=== PATIENT | female | born 1950 | race Two or more races ===

== ENCOUNTER 2019-07-28 10:49 | Inpatient (IN) | payer OTHER ==
[~2019-07-28] VITALS: Ht 167.6 cm; Wt 66.2 kg
[~2019-07-28 10:49] MED LIST: ATENOLOL25 MG; PROPRANOLOL HCL40 MG
[2019-07-28] MEDS ORDERED: LANOXIN125 MCG (11:04)
[2019-07-28] MEDS ORDERED: METOPROLOL SUCC50 MG (11:04)
[2019-07-28] MEDS ORDERED: XARELTO20 MG (11:04)
== END 2019-07-30 16:03 | disposition home or self-care (01) | DRG 309 ==
LOC: ER 10:49 → EDBD 07-29 15:33 → SURG 07-29 15:33
PROVIDERS: ADMIT Specialist
PROC: B246ZZZ Ultrasonography of Right and Left Heart (ICD-10-PCS; principal; 2019-07-29)
PROC: 4A12X4Z Monitoring of Cardiac Electrical Activity, External Approach (ICD-10-PCS; 2019-07-29)
DX: I48.0 Paroxysmal atrial fibrillation (principal); D68.61 Antiphospholipid syndrome; I51.7 Cardiomegaly; Z79.01 Long term (current) use of anticoagulants; Z86.73 Personal history of transient ischemic attack (TIA), and cerebral infarction without residual deficits

== ENCOUNTER 2020-06-06 14:25 | Outpatient (CLI) | payer OTHER ==
[~2020-06-06 14:25] MED LIST changes: +LANOXIN125 MCG; +METOPROLOL SUCC50 MG; +XARELTO20 MG
== END 2020-06-06 15:02 | disposition home or self-care (01) ==
LOC: MAMO-SONO 14:25
PROVIDERS: ATTEND Obstetrics & Gynecology
DX: Z12.31 Encounter for screening mammogram for malignant neoplasm of breast (principal); N60.11 Diffuse cystic mastopathy of right breast; N60.12 Diffuse cystic mastopathy of left breast

== ENCOUNTER 2021-08-15 12:33 | Emergency (ER) | payer OTHER ==
[~2021-08-15] VITALS: Ht 167.6 cm; Wt 70.8 kg
[2021-08-15] MEDS ORDERED: NORFLEX100MG PO (16:10)
== END 2021-08-15 16:21 | disposition home or self-care (01) ==
LOC: ER 12:33
DX: S00.83XA Contusion of other part of head, initial encounter (principal); S20.213A Contusion of bilateral front wall of thorax, initial encounter; W18.39XA Other fall on same level, initial encounter; Y93.89 Activity, other specified; Y92.098 Other place in other non-institutional residence as the place of occurrence of the external cause; Y99.8 Other external cause status

== ENCOUNTER 2021-08-20 14:04 | Emergency (ER) | payer OTHER ==
[~2021-08-20] VITALS: Ht 167.6 cm; Wt 68.0 kg
[~2021-08-20 14:04] MED LIST changes: +NORFLEX100MG PO
[2021-08-20] MEDS ORDERED: ULTRAM50 MG PO (16:28)
[2021-08-20] MEDS ORDERED: LIDODERM1 EACH TOP (16:34)
== END 2021-08-20 16:38 | disposition home or self-care (01) ==
LOC: ER 14:04
DX: G89.11 Acute pain due to trauma (principal); M54.89 Other dorsalgia; S20.223 Contusion of bilateral back wall of thorax; W18.09XS Striking against other object with subsequent fall, sequela

== ENCOUNTER 2024-06-01 07:34 | Outpatient (CLI) | payer OTHER ==
[~2024-06-01 07:34] MED LIST changes: +LIDODERM1 EACH TOP; +ULTRAM50 MG PO
== END 2024-06-01 07:46 | disposition home or self-care (01) ==
LOC: MAMO-SONO 07:34
DX: Z12.31 Encounter for screening mammogram for malignant neoplasm of breast (principal)